=== PATIENT | male | born 1995 | race Two or more races ===

== ENCOUNTER 2018-05-01 11:16 | Emergency (ER) | payer OTHER ==
[~2018-05-01] VITALS: Ht 175.3 cm; Wt 84.5 kg
[2018-05-01 11:22] VITALS: BP 124/78
[2018-05-01] MEDS ORDERED: FAMOTIDINE 20 MG/2 ML ONE (11:54)
[2018-05-01] MEDS ORDERED: ONDANSETRON 2MG/ML, 2ML ONE (11:54)
[2018-05-01] MEDS ORDERED: FAMOTIDINE 20 MG/2 ML IVP ONE (12:00)
[2018-05-01] MEDS ORDERED: SODIUM CHLORIDE 0.9% 1,000ML IVBOLUS ONE (12:00)
[2018-05-01] MEDS ORDERED: SODIUM CHLORIDE FLUSH 10ML SYR IVF ONE (12:00)
[2018-05-01] MEDS ORDERED: ONDANSETRON 2MG/ML, 2ML IVPush ONE (12:00)
[2018-05-01 12:14] LABS: BASOPHILS # (AUTO) 0.01 x10^3/uL (0-0.1); BASOPHILS % (AUTO) 0 % (0-1); EOSINOPHILS # (AUTO) 0.01 x10^3/uL (0-0.4); EOSINOPHILS % (AUTO) 0 % (1-7); LYMPHOCYTES # (AUTO) 1.48 x10^3/uL (1-3.4); LYMPHOCYTES % (AUTO) 25 % (22-44); MD NO; MEAN CORPUSCULAR HEMOGLOBIN 31.5 pg (27.5-34.5); MEAN CORPUSCULAR HGB CONC 34.5 g/dL (33.2-36.2); MEAN CORPUSCULAR VOLUME 91.3 fL (81-97); MEAN PLATELET VOLUME 8.1 fL (7.4-10.4); MONOCYTES % (AUTO) 5 % (2-9); NEUTROPHILS # (AUTO) 4.21 x10^3/uL (1.8-6.8); NEUTROPHILS % (AUTO) 70 % (42-75); PLATELET COUNT 241 x10^3/uL (130-400); RED BLOOD COUNT 4.87 x10^6/uL (4.38-5.82); RED CELL DISTRIBUTION WIDTH 13.5 % (9.4-14.8)
[2018-05-01 12:31] LABS: ALANINE AMINOTRANSFERASE 66 U/L (12-78); ALBUMIN 4.6 g/dL (3.4-5.0); ANION GAP 14 mmol/L (5-15); CALCIUM 8.4 mg/dL (8.5-10.1); CHLORIDE 104 mmol/L (98-107); CREATININE 0.74 mg/dL (0.7-1.3)
[2018-05-01 12:33] LABS: ALKALINE PHOSPHATASE 107 U/L (45-117); BILIRUBIN,TOTAL 1.2 mg/dL (0.2-1.0); TOTAL PROTEIN 8.4 g/dL (6.4-8.2)
[2018-05-01] MEDS ORDERED: LORazepam 2 MG/ML, 1ML ONE (12:44)
[2018-05-01] MEDS ORDERED: LORazepam 2 MG/ML, 1ML IVPush ONE (13:00)
== END 2018-05-01 14:07 | disposition home or self-care (01) ==
LOC: ED 11:54
DX: R11.2 Nausea with vomiting, unspecified (principal); R19.7 Diarrhea, unspecified; R10.9 Unspecified abdominal pain; I48.91 Unspecified atrial fibrillation
CPT/HCPCS: 36415; 80053; 83690; 85025; 93005; 96374; 96375; 99284; J2060; J2405; J3490; J7030